=== PATIENT | male | born 1990 | race Caucasian/White ===

== ENCOUNTER 2020-11-01 15:49 | Emergency (ER) | payer MEDICAID ==
[~2020-11-01] VITALS: Ht 180.3 cm; Wt 84.5 kg
[2020-11-01 15:56] VITALS: BP 133/76
== END 2020-11-01 20:40 | disposition home or self-care (01) ==
LOC: ER 15:50
DX: H53.2 Diplopia (principal); H53.8 Other visual disturbances; R63.4 Abnormal weight loss; F12.90 Cannabis use, unspecified, uncomplicated; Z72.89 Other problems related to lifestyle; Z68.26 Body mass index [BMI] 26.0-26.9, adult
CPT/HCPCS: 36415; 70450; 70482; 82948; 85651; 86140; 99285